=== PATIENT | male | born 1965 | race Caucasian/White ===

== ENCOUNTER → 2017-03-30 | Outpatient (CLI) | payer OTHER ==
--- NOTE | 2017-03-30 19:41 | REP ---
LUMBAR SPINE, FIVE VIEWS: HISTORY: Back pain. There is no acute fracture or sublation. The L2-3 through L4-5 intervertebral discs are decreased in height consistent with disc degeneration. Osteophytes are present on L3 and 4. The facet joints are normal in appearance. There is spina bifida occulta of S1. IMPRESSION: Degenerative change as described above. Signed by Gaurav Rivas MD 03/30/2017 07:43 P
== END ==
LOC: M WUC 17:56
PROVIDERS: ATTEND Physician Assistant
DX: M54.5 Low back pain (principal)